=== PATIENT | male | born 1960 | race Caucasian/White ===

== ENCOUNTER 2017-10-17 14:41 | Emergency (ER) | payer OTHER ==
[2017-10-17 14:50] VITALS: RESP 18; TEMP 98.2
[2017-10-17] MEDS ORDERED: NS 1,000 ML IV ONE (15:00)
[2017-10-17 15:06] LABS: PLATELET COUNT 173 10^3/uL (150-400)
--- NOTE | 2017-10-17 15:30 | CPEKG ---
Heart Rate: 70 RR Interval: 857 P-R Interval: 176 QRSD Interval: 102 QT Interval: 412 QTC Interval: 445 P Piggott: 63 QRS Piggott: 36 T Wave Piggott: 41 EKG Severity - NORMAL ECG - EKG Impression: SINUS RHYTHM Electronically Signed By: Shakeel Hyde 17-Oct-2017 16:33:37
--- NOTE | 2017-10-17 16:29 | EDPHY ---
H & P Stated Complaint: LOW SODIUM WITH BLOODWORK TODAY 9AM Time Seen by Provider: 10/17/17 15:00 HPI/ROS: This patient has had some BPH symptoms and saw his urologist this week. He went in for lab work this morning ordered by Dr. Templeton of Urology and was notified that the sodium was very low at 117. He was surprised to hear this and was instructed to come in the emergency department for evaluation. He has never had low sodium before. He reports that he has some fatigue but attributes this to work. Other than this he has noticed any symptoms recently except subtle chest pain at times described as a mild tightness 1 or 2/10 3 hr duration or less with no exacerbating factors. He noticed this chest pain after starting to do pushups again and thinks that may be related to the pushups but reports that does not feel like typical muscle pain. He usually notices at rest. He has a currently at this level of 1/10 and has had for a few hours. It does not radiate is not associated with any other symptoms. He 1st noticed this subtle chest tightness 3 weeks ago. This is the 1st be spoken to physician about it. His drove him in by private vehicle for evaluation of his low sodium. ROS: Constitutional: Mild fatigue. Otherwise negative HEENT: No complaints Neuro: No headache. No confusion. No numbness or tingling. No seizure activity. Pulmonary: No shortness of breath. No cough. Cardiovascular: No heart palpitations. No leg swelling. No lightheadedness. Endocrine: No diaphoresis or other complaints new line GI: No nausea or vomiting. No abdominal pain. Integumentary: No diaphoresis. No pallor. No rash. : He has some difficulty passing urine and has been having to get up at night to 3 times a night. He is being seen by Urology for the symptoms as above. Complete review of symptoms is otherwise negative. Source: Patient Exam Limitations: No limitations - Personal History Current Tetanus Diphtheria and Acellular Pertussis (TDAP): Yes Tetanus Vaccine Date: within 10 yrs - Medical/Surgical History Other PMH: DEVIATED SPUTUM REPAIR, ORAL SURG, TONSILECTOMY, TUBINATE REDUCTION, ORTHO SURG - Family History Significant Family History: Heart disease (His father had an ID at age 56. ) - Social History Smoking Status: Never smoked Alcohol Use: Occasionally Drug Use: None - Physical Exam Exam: Vital signs are normal exception of mild hypertension 150/80 General Appearance: Alert, no distress. Eyes: Pupils equal and round no pallor or injection. ENT, Mouth: Mucous membranes moist. Respiratory: There are no retractions, lungs are clear to auscultation. Cardiovascular: Regular rate and rhythm. No murmur gallop or rub. he has no chest wall tenderness. Gastrointestinal: Abdomen is soft and nontender, no masses, bowel sounds normal. Neurological: GCS 15. No focal deficits. Skin: Warm and dry, no rashes. Musculoskeletal: Neck is supple nontender. Extremities are symmetrical, full range of motion. Psychiatric: Mood and affect normal DIFFERENTIAL DIAGNOSIS: After history and physical exam differential diagnosis was considered for hyponatremia versus spurious lab result, musculoskeletal chest pain, cardiac ischemia, GERD Constitutional: Initial Vital Signs Temperature (C) 36.8 C 10/17/17 14:46 Heart Rate 76 10/17/17 14:46 Respiratory Rate 18 10/17/17 14:46 Blood Pressure 150/79 H 10/17/17 14:46 O2 Sat (%) 95 10/17/17 14:46 O2 Delivery Mode Room Air Allergies/Adverse Reactions: Penicillins Allergy (Intermediate, Verified 10/17/17 14:45) Rash Home Medications: Medication Instructions Recorded NK [No Known Home Meds] 10/17/17 Medical Decision Making - Diagnostics EKG Interpretation: 12 lead EKG performed shortly after arrival indication chest pain Sinus rhythm at a rate of 70 on this EKG performed at 3:28 p.m. Intervals: Normal throughout [place]: Normal throughout ST segments: Normal throughout Overall assessment: Normal EKG ED Course/Re-evaluation: Studies: CBC is normal, i-STAT chemistries normal Basic metabolic panel is also normal Troponin is normal I started a saline bolus on this patient until I saw the i-STAT results. He had 500 cc of saline in a night. The rest of the saline at that point given normal i-STAT sodium. The sodium is confirmed normal with the basic metabolic panel. Patient rested and fell sleep. His subtle chest tightness resolved entirely without intervention. Discussion: Patient with spurious lab result from this morning you actually has a normal sodium level on 2 checks here-i-STAT and basic metabolic. His chest tightness is atypical does not sound like cardiac ischemia but with a positive family history I recommended that he follow up with Dr. Jang for further evaluation. He has normal EKG, troponin and no concerning findings today. I counseled patient regarding today's findings and plan for follow-up. Answered all his questions prior to discharge home. Patient understands need to return emergency department should he developed any significant change or worsening of his chest tightness. - Data Points Laboratory Results: Laboratory Results 10/17/17 14:55 10/17/17 14:55 10/17/17 10/17/17 10/17/17 15:12 14:55 14:55 WBC RBC Hgb POC Hgb 14.3 gm/dL gm/dL (13.7-17.5) Hct POC Hct 42 % % (40-51) MCV MCH MCHC RDW Plt Count MPV Neut % (Auto) Lymph % (Auto) [place] % (Auto) Eos % (Auto) Baso % (Auto) Nucleat RBC Rel Count Absolute Neuts (auto) Absolute Lymphs (auto) Absolute Monos (auto) Absolute Eos (auto) Absolute Basos (auto) Absolute Nucleated RBC Immature Gran % Immature Gran # POC Sodium 144 mEq/L mEq/L (135-145) Sodium 144 mEq/L mEq/L (135-145) POC Potassium 3.5 mEq/L mEq/L (3.3-5.0) Potassium 3.7 mEq/L mEq/L (3.5-5.2) POC Chloride 104 mEq/L mEq/L (97-110) Chloride 108 mEq/L D mEq/L (97-110) Carbon Dioxide 27 mEq/l mEq/l (22-31) Anion Gap 9 mEq/L mEq/L (8-16) POC BUN 15 mg/dL mg/dL (7-23) BUN 15 mg/dL mg/dL (7-23) Creatinine 1.0 mg/dL mg/dL (0.7-1.3) POC Creatinine 1.2 mg/dL mg/dL (0.7-1.3) Estimated GFR > 60 Glucose 136 mg/dL H mg/dL (70-100) POC Glucose 138 mg/dL H mg/dL (70-100) Calcium 9.2 mg/dL D mg/dL (8.5-10.4) Troponin I < 0.012 ng/mL ng/mL (0.000-0.034) 03/07/18 14:55 WBC 6.29 10^3/uL 10^3/uL (3.80-9.50) RBC 4.42 10^6/uL 10^6/uL (4.40-6.38) Hgb 15.0 g/dL g/dL (13.7-17.5) POC Hgb Hct 42.1 % % (40.0-51.0) POC Hct MCV 95.2 fL fL (81.5-99.8) MCH 33.9 pg pg (27.9-34.1) MCHC 35.6 g/dL g/dL (32.4-36.7) RDW 12.3 % % (11.5-15.2) Plt Count 173 10^3/uL 10^3/uL (150-400) MPV 9.6 fL fL (8.7-11.7) Neut % (Auto) 65.5 % % (39.3-74.2) Lymph % (Auto) 25.0 % % (15.0-45.0) [place] % (Auto) 7.5 % % (4.5-13.0) Eos % (Auto) 1.0 % % (0.6-7.6) Baso % (Auto) 0.8 % % (0.3-1.7) Nucleat RBC Rel Count 0.0 % % (0.0-0.2) Absolute Neuts (auto) 4.13 10^3/uL 10^3/uL (1.70-6.50) Absolute Lymphs (auto) 1.57 10^3/uL 10^3/uL (1.00-3.00) Absolute Monos (auto) 0.47 10^3/uL 10^3/uL (0.30-0.80) Absolute Eos (auto) 0.06 10^3/uL 10^3/uL (0.03-0.40) Absolute Basos (auto) 0.05 10^3/uL 10^3/uL (0.02-0.10) Absolute Nucleated RBC 0.00 10^3/uL 10^3/uL (0-0.01) Immature Gran % 0.2 % % (0.0-1.1) Immature Gran # 0.01 10^3/uL 10^3/uL (0.00-0.10) POC Sodium Sodium POC Potassium Potassium POC Chloride Chloride Carbon Dioxide Anion Gap POC BUN BUN Creatinine POC Creatinine Estimated GFR Glucose POC Glucose Calcium Troponin I Medications Given: Discontinued Medications Sodium Chloride (Ns) 1,000 mls @ 0 mls/hr IV EDNOW ONE; Wide Open PRN Reason: Protocol Stop: 10/17/17 15:01 Last Admin: 10/17/17 15:19 Dose: 1,000 mls Point of Care Test Results: 10/17/17 15:12 POC Sodium 144 POC Potassium 3.5 POC Chloride 104 POC BUN 15 POC Creatinine 1.2 POC Glucose 138 H Departure - Departure Disposition: Home, Routine, Self-Care Clinical Impression: Atypical chest pain Condition: Good Instructions: Chest Pain (ED) Additional Instructions: Diagnosis: Atypical chest pain The sodium results from earlier today was a spurious result. your actual sodium is normal today at a level of 144. Plan: Call Dr. Jang-heel seat pounder arrange follow-up appointment for further evaluation of your subtle chest symptoms. Return emergency department if he developed more significant chest pain or chest pain with additional symptoms such as shortness of breath, sweatiness, nausea or other concerns. Referrals: NONE *PRIMARY CARE P,. [Primary Care Provider] - As per Instructions Terrance Jang MD [Medical Doctor] - As per Instructions
[2017-10-17 17:26] VITALS: BP 123/73; PULSE 62; O2SAT 97
== END 2017-10-17 16:44 | disposition home or self-care (01) ==
LOC: CED 14:41
DX: R07.89 Other chest pain (principal); E86.9 Volume depletion, unspecified
CPT/HCPCS: 80048-PO; 82947-QW; 84484-PO; 85025-PO